=== PATIENT | male | born 1995 | race Caucasian/White ===

== ENCOUNTER 2018-08-31 22:24 | Emergency (ER) | payer MEDICAID, OTHER ==
[~2018-08-31] VITALS: Ht 190.5 cm; Wt 71.0 kg
[~2018-08-31 22:24] MED LIST: LURA20TA PO
[2018-08-31 22:35] VITALS: BP 136/80
[2018-08-31] MEDS ORDERED: NAPR-56 PO (23:13)
[2018-08-31] MEDS ORDERED: HYDROcodone/acetaminophen 10/325mg tab PO ONE (23:15)
== END 2018-08-31 23:19 | disposition home or self-care (01) ==
LOC: ER 22:24
DX: S29.011A Strain of muscle and tendon of front wall of thorax, initial encounter (principal); Z79.899 Other long term (current) drug therapy; X58.XXXA Exposure to other specified factors, initial encounter; Y93.89 Activity, other specified; Y92.89 Other specified places as the place of occurrence of the external cause; Y99.8 Other external cause status
CPT/HCPCS: 99282

== ENCOUNTER 2019-09-16 15:44 | Emergency (ER) | payer MEDICAID ==
[~2019-09-16] VITALS: Ht 188 cm; Wt 72.7 kg
[2019-09-16 15:48] VITALS: BP 131/78
[2019-09-16] MEDS ORDERED: IBUP-1984 PO (16:14)
== END 2019-09-16 16:33 | disposition home or self-care (01) ==
LOC: ER 15:44
DX: S63.502A Unspecified sprain of left wrist, initial encounter (principal); F32.9 Major depressive disorder, single episode, unspecified; F20.9 Schizophrenia, unspecified; F17.200 Nicotine dependence, unspecified, uncomplicated; W19.XXXA Unspecified fall, initial encounter; Y93.89 Activity, other specified; Y92.89 Other specified places as the place of occurrence of the external cause; Y99.8 Other external cause status
CPT/HCPCS: 29125; 73110; 99284

== ENCOUNTER → 2020-01-21 | Emergency (ER) | payer MEDICAID ==
[~2020-01-21] VITALS: Ht 188 cm; Wt 72.7 kg
[~2020-01-21] MED LIST changes: +AMOX-422 PO
[2020-01-21 13:24] VITALS: BP 118/75
== END | disposition home or self-care (01) ==
LOC: ER 13:16
DX: S01.412A Laceration without foreign body of left cheek and temporomandibular area, initial encounter (principal); F32.9 Major depressive disorder, single episode, unspecified; F20.9 Schizophrenia, unspecified; Z72.89 Other problems related to lifestyle; Z79.899 Other long term (current) drug therapy; Z79.2 Long term (current) use of antibiotics; W51.XXXA Accidental striking against or bumped into by another person, initial encounter; Y93.89 Activity, other specified; Y99.8 Other external cause status; Y92.89 Other specified places as the place of occurrence of the external cause
CPT/HCPCS: 99283

== ENCOUNTER 2020-10-03 15:49 | Emergency (ER) | payer MEDICAID ==
[~2020-10-03 15:49] MED LIST changes: -AMOX-422 PO
== END 2020-10-03 16:53 | disposition left against medical advice (07) ==
LOC: ER 15:51
DX: B99.9 Unspecified infectious disease (principal); Z53.21 Procedure and treatment not carried out due to patient leaving prior to being seen by health care provider

== ENCOUNTER 2020-12-27 23:20 | Emergency (ER) | payer MEDICAID ==
[~2020-12-27] VITALS: Ht 190.5 cm; Wt 85.0 kg
[2020-12-27] MEDS ORDERED: naloxone 2mg/2ml inj IV PRN (23:55)
[2020-12-27] MEDS ORDERED: normal saline 1000ml 1,000 ML IV ONE (23:55)
[2020-12-28] MEDS ORDERED: normal saline 1000ML IV soln IVB ONE (00:05)
[2020-12-28] MEDS ORDERED: naloxone 0.4 mg/ml inj IV PRN (00:05)
[2020-12-28 01:10] VITALS: BP 113/71
== END 2020-12-28 01:30 | disposition home or self-care (01) ==
LOC: ER 23:20
DX: T40.411A Poisoning by fentanyl or fentanyl analogs, accidental (unintentional), initial encounter (principal); F32.9 Major depressive disorder, single episode, unspecified; F20.9 Schizophrenia, unspecified; F19.90 Other psychoactive substance use, unspecified, uncomplicated; Z72.89 Other problems related to lifestyle; Y92.89 Other specified places as the place of occurrence of the external cause
CPT/HCPCS: 96360; 99284; J7030

== ENCOUNTER 2021-04-05 23:32 | Emergency (ER) | payer MEDICAID ==
[~2021-04-05] VITALS: Ht 190.5 cm; Wt 77.3 kg
[2021-04-05 23:46] VITALS: BP 134/90
[2021-04-05] MEDS ORDERED: naloxone 2mg/2ml inj IM STA (23:59)
[2021-04-06] MEDS ORDERED: NALO4SPR BOTHNARES
== END 2021-04-06 01:04 | disposition left against medical advice (07) ==
LOC: ER 23:33
DX: T40.0X1A Poisoning by opium, accidental (unintentional), initial encounter (principal); F32.9 Major depressive disorder, single episode, unspecified; F20.9 Schizophrenia, unspecified; F19.90 Other psychoactive substance use, unspecified, uncomplicated; Z72.89 Other problems related to lifestyle; Z79.899 Other long term (current) drug therapy; Y92.89 Other specified places as the place of occurrence of the external cause
CPT/HCPCS: 99283